=== PATIENT | male | born 1990 | race African-American/Black ===

== ENCOUNTER 2018-08-13 19:06 | Inpatient (IN) ==
[2018-08-13 19:45] LABS: Basophils # 0.1 10*3/uL (0.0-0.2); Basophils % 0.9 % (0.0-0.8); Eosinophils # 0.1 10*3/uL (0.0-0.87); Eosinophils % 0.4 % (0.00-10.9); Hemoglobin 16.6 GM/DL (14.0-18.0); Immature Granulocytes % 0.3 %; Immature Granulocytes Absolute 0.03 #; Lymphocytes # 3.6 10*3/uL (1.4-4.0); Lymphocytes % 31.5 % (21.2-54.2); Mean Corpuscular HGB Conc 32.5 GM/DL (32-36); Mean Corpuscular Hemoglobin 31 PG (27-34); Mean Corpuscular Volume 94.1 FL (87-102); Mean Platelet Volume 10.2 FL (9.6-12.0); Monocytes # 1.1 10*3/uL (0.11-0.8); Monocytes % 9.7 % (1.7-12.7); Neutrophils # 6.5 10*3/uL (1.4-7.4); Neutrophils % 57.2 % (38.7-73.9); Platelet Count 221 T/CUMM (130-400); Red Blood Count 5.42 MC/CUMM (3.8-5.5); Red Cell Distribution Width 13.7 % (9.3-17.3); White Blood Count 11.4 T/CUMM (4-12)
[2018-08-13 19:55] LABS: INR 1.3; PT Patient Result 14.1 SECS; Partial Thromboplastin Time 22.6 SECS (0-40)
[2018-08-13 20:10] LABS: Albumin 4.1 G/DL (3.4-5.0); Bilirubin,Total 4.6 MG/DL (0.2-1.0); Osmolality,Calculated 276.1 MOS/KG (273-304); Total Protein 7.4 G/DL (6.4-8.3)
[2018-08-13] MEDS ORDERED: ASPIRIN EC 325 MG TABLET PO STA (21:01)
[2018-08-13] MEDS ORDERED: SODIUM CHLORIDE 0.9% 1,000 ML IV STA (21:02)
[2018-08-13] MEDS ORDERED: NITROGLYCERIN SL 0.4 MG TABLET SL STA (21:02)
[2018-08-13] MEDS ORDERED: CLOPIDOGREL 300 MG TABLET PO STA (22:47)
[2018-08-13] MEDS ORDERED: ACETAMINOPHEN 325 MG TABLET PO PRN (22:47)
[2018-08-13] MEDS ORDERED: NICOTINE 21 MG/24 HR PATCH TRANSDERM PRN (22:47)
[2018-08-13] MEDS ORDERED: BISACODYL 5 MG TABLET PO PRN (22:47)
[2018-08-13] MEDS ORDERED: diphenhydrAMINE CAP 25 MG CAPSULE PO PRN (22:47)
[2018-08-13] MEDS ORDERED: traZODone 50 MG TABLET PO PRN (22:47)
[2018-08-13 23:09] LABS: Bilirubin,Direct 1.09 MG/DL (0.0-0.20); Bilirubin,Indirect 3.6 MG/DL (0.0-1.0); Bilirubin,Total 4.7 MG/DL (0.2-1.0); Total Protein 7.7 G/DL (6.4-8.3)
[2018-08-13 23:14] LABS: Apearance,Urine CLEAR (Clear); Bilirubin,Urine Negative (Negative); Blood, Urine Negative (Negative); Glucose,Urine (UA) Negative (Negative); Ketones,Urine Negative (Negative); Nitrite,Urine Negative (Negative); Protein,Urine Negative; RBC,Urine <1 /HPF (0-4); Urine Color Yellow (Yellow); Urine Specific Gravity 1.009 (1.001-1.035); WBC,Urine <1 /HPF (0-6)
[2018-08-13 23:16] LABS: Risk Ratio 2.82; Thyroid Stimulating Hormone 2.39 uIU/ml (0.358-3.74); VLDL CHOLESTEROL 16.8 MG/DL
[2018-08-13] MEDS: ONDANSETRON 4 MG/2 ML VIAL IV PRN (23:20)
[2018-08-13] MEDS: MORPHINE 4 MG/1 ML VIAL IV PRN (23:20)
[2018-08-13 23:25] LABS: Barbiturates Screen,Urine Negative (Negative); Benzodiazepines Screen,Urine Negative (Negative); Cannabinoid Screen,Urine Negative (Negative); Opiate Screen,Urine Negative (Negative); Phencyclidine Screen,Urine Negative (Negative)
[2018-08-14 00:07] LABS: Hepatitis A Ab IgM Quant 0.21 Index; Hepatitis A Ab IgM Result Negative (Negative); Hepatitis B Core IgM Quant 0.09 Index; Hepatitis B Core IgM Result Negative (Negative); Hepatitis B Surface Ag Quant < 0.10 Index; Hepatitis B Surface Ag Result Negative (Negative); Hepatitis C Virus Ab Quant 0.05 Index; Hepatitis C Virus Ab Result Negative (Negative)
[2018-08-14 05:14] LABS: Calcium 8.4 MG/DL (8.5-10.1); Osmolality,Calculated 279.7 MOS/KG (273-304); Potassium 3.5 MMOL/L (3.5-5.1)
[2018-08-14] MEDS: PANTOPRAZOLE 40 MG VIAL IV SCH (10:06)
[2018-08-14] MEDS: FUROSEMIDE 40 MG/4 ML VIAL IV SCH (10:07)
[2018-08-14] MEDS: CLOPIDOGREL 75 MG TABLET PO SCH (10:07)
[2018-08-14] MEDS: ASPIRIN 325 MG TABLET PO SCH (10:08)
[2018-08-14] MEDS: CARVEDILOL 3.125 MG TABLET PO SCH ×2 (10:08→21:33)
[2018-08-15 04:27] LABS: Basophils # 0.1 10*3/uL (0.0-0.2); Basophils % 0.8 % (0.0-0.8); Eosinophils # 0.1 10*3/uL (0.0-0.87); Eosinophils % 1.2 % (0.00-10.9); Hematocrit 42.9 VOL% (42.0-52.0); Hemoglobin 13.9 GM/DL (14.0-18.0); Immature Granulocytes % 0.3 %; Immature Granulocytes Absolute 0.03 #; Lymphocytes # 3.8 10*3/uL (1.4-4.0); Lymphocytes % 38.8 % (21.2-54.2); Mean Corpuscular HGB Conc 32.4 GM/DL (32-36); Mean Corpuscular Hemoglobin 31 PG (27-34); Mean Corpuscular Volume 94.7 FL (87-102); Mean Platelet Volume 10.7 FL (9.6-12.0); Monocytes # 0.9 10*3/uL (0.11-0.8); Monocytes % 9.4 % (1.7-12.7); Neutrophils # 4.8 10*3/uL (1.4-7.4); Neutrophils % 49.5 % (38.7-73.9); Platelet Count 190 T/CUMM (130-400); Red Blood Count 4.53 MC/CUMM (3.8-5.5); Red Cell Distribution Width 13.5 % (9.3-17.3); White Blood Count 9.7 T/CUMM (4-12)
[2018-08-15 05:07] LABS: Calcium 8.2 MG/DL (8.5-10.1); Osmolality,Calculated 285.4 MOS/KG (273-304); Potassium 3.2 MMOL/L (3.5-5.1)
[2018-08-15] MEDS: CARVEDILOL 3.125 MG TABLET PO SCH ×2 (09:07→21:13)
[2018-08-15] MEDS: FUROSEMIDE 40 MG/4 ML VIAL IV SCH (09:07)
[2018-08-15] MEDS: PANTOPRAZOLE 40 MG VIAL IV SCH (09:57)
[2018-08-15] MEDS: CLOPIDOGREL 75 MG TABLET PO SCH (09:58)
[2018-08-15] MEDS: ASPIRIN 325 MG TABLET PO SCH (09:58)
[2018-08-15] MEDS: POTASSIUM CHLORIDE 20 MEQ TABLET PO SCH (12:26)
[2018-08-15] MEDS: SPIRONOLACTONE 25 MG TABLET PO SCH (12:26)
[2018-08-15] MEDS: MORPHINE 4 MG/1 ML VIAL IV PRN ×2 (16:10→21:12)
[2018-08-16 04:49] LABS: Calcium 8.2 MG/DL (8.5-10.1); Potassium 3.7 MMOL/L (3.5-5.1)
[2018-08-16] MEDS ORDERED: NITROGLYCERIN SL 0.4 MG TABLET SL ONE (08:50)
[2018-08-16] MEDS: ONDANSETRON 4 MG/2 ML VIAL IV PRN (09:00)
[2018-08-16] MEDS: ASPIRIN 325 MG TABLET PO SCH (09:56)
[2018-08-16] MEDS: CARVEDILOL 3.125 MG TABLET PO SCH ×2 (09:56→20:50)
[2018-08-16] MEDS: SPIRONOLACTONE 25 MG TABLET PO SCH (09:56)
[2018-08-16] MEDS: POTASSIUM CHLORIDE 20 MEQ TABLET PO SCH (09:57)
[2018-08-16] MEDS: FUROSEMIDE 40 MG/4 ML VIAL IV SCH (09:59)
[2018-08-16] MEDS: PANTOPRAZOLE 40 MG VIAL IV SCH (09:59)
[2018-08-16] MEDS ORDERED: ALBUTEROL/IPRATROPIUM 3 ML NEB RESP TX PRN (14:10)
[2018-08-16] MEDS: FUROSEMIDE 40 MG TABLET PO SCH (16:42)
[2018-08-16] MEDS: MORPHINE 4 MG/1 ML VIAL IV PRN (20:50)
[2018-08-17] MEDS: MORPHINE 4 MG/1 ML VIAL IV PRN ×2 (01:55→15:54)
[2018-08-17 03:41] LABS: Basophils # 0.1 10*3/uL (0.0-0.2); Basophils % 0.9 % (0.0-0.8); Eosinophils # 0.1 10*3/uL (0.0-0.87); Eosinophils % 0.8 % (0.00-10.9); Hematocrit 45.3 VOL% (42.0-52.0); Hemoglobin 14.6 GM/DL (14.0-18.0); Immature Granulocytes % 0.4 %; Immature Granulocytes Absolute 0.05 #; Lymphocytes # 3.7 10*3/uL (1.4-4.0); Lymphocytes % 32.6 % (21.2-54.2); Mean Corpuscular HGB Conc 32.2 GM/DL (32-36); Mean Corpuscular Hemoglobin 30 PG (27-34); Mean Corpuscular Volume 94.4 FL (87-102); Mean Platelet Volume 10.3 FL (9.6-12.0); Monocytes # 1.2 10*3/uL (0.11-0.8); Monocytes % 10.5 % (1.7-12.7); Neutrophils # 6.1 10*3/uL (1.4-7.4); Neutrophils % 54.8 % (38.7-73.9); Platelet Count 212 T/CUMM (130-400); Red Cell Distribution Width 13.7 % (9.3-17.3); White Blood Count 11.2 T/CUMM (4-12)
[2018-08-17 04:11] LABS: Calcium 8.7 MG/DL (8.5-10.1); Potassium 4.1 MMOL/L (3.5-5.1)
[2018-08-17] MEDS ORDERED: FUROSEMIDE 40 MG/4 ML VIAL IV ONE (06:30)
[2018-08-17] MEDS ORDERED: FUROSEMIDE 40 MG/4 ML VIAL ONE (06:33)
[2018-08-17] MEDS: POTASSIUM CHLORIDE 20 MEQ TABLET PO SCH (09:51)
[2018-08-17] MEDS: SPIRONOLACTONE 25 MG TABLET PO SCH (09:51)
[2018-08-17] MEDS: ASPIRIN 325 MG TABLET PO SCH (09:51)
[2018-08-17] MEDS: CARVEDILOL 3.125 MG TABLET PO SCH ×2 (09:51→21:32)
[2018-08-17] MEDS: FUROSEMIDE 40 MG TABLET PO SCH (09:51)
[2018-08-17] MEDS: PANTOPRAZOLE 40 MG VIAL IV SCH (09:55)
[2018-08-17] MEDS: FUROSEMIDE 40 MG/4 ML VIAL IV SCH (17:14)
[2018-08-18 04:53] LABS: Basophils # 0.1 10*3/uL (0.0-0.2); Eosinophils # 0.1 10*3/uL (0.0-0.87); Eosinophils % 1.1 % (0.00-10.9); Hematocrit 51.4 VOL% (42.0-52.0); Hemoglobin 16.2 GM/DL (14.0-18.0); Immature Granulocytes % 0.3 %; Immature Granulocytes Absolute 0.04 #; Lymphocytes % 32.1 % (21.2-54.2); Mean Corpuscular HGB Conc 31.5 GM/DL (32-36); Mean Corpuscular Hemoglobin 30 PG (27-34); Mean Corpuscular Volume 96.4 FL (87-102); Mean Platelet Volume 10.6 FL (9.6-12.0); Monocytes # 1.5 10*3/uL (0.11-0.8); Neutrophils # 6.6 10*3/uL (1.4-7.4); Neutrophils % 53.5 % (38.7-73.9); Platelet Count 233 T/CUMM (130-400); Red Blood Count 5.33 MC/CUMM (3.8-5.5); Red Cell Distribution Width 13.9 % (9.3-17.3); White Blood Count 12.3 T/CUMM (4-12)
[2018-08-18 05:21] LABS: Calcium 8.8 MG/DL (8.5-10.1); Osmolality,Calculated 273.2 MOS/KG (273-304); Potassium 4.2 MMOL/L (3.5-5.1)
[2018-08-18] MEDS: SPIRONOLACTONE 25 MG TABLET PO SCH (09:00)
[2018-08-18] MEDS: POTASSIUM CHLORIDE 20 MEQ TABLET PO SCH (09:00)
[2018-08-18] MEDS: ASPIRIN 325 MG TABLET PO SCH (09:00)
[2018-08-18] MEDS: CARVEDILOL 3.125 MG TABLET PO SCH ×2 (09:00→21:55)
[2018-08-18] MEDS: PANTOPRAZOLE 40 MG VIAL IV SCH (09:02)
[2018-08-18] MEDS: FUROSEMIDE 40 MG/4 ML VIAL IV SCH ×2 (09:06→16:36)
[2018-08-18] MEDS ORDERED: MAGNESIUM CITRATE 300 ML BOTTLE PO PRN (11:55)
[2018-08-18] MEDS: POLYETHYLENE GLYCOL POWDER 17 GM PACK PO SCH (14:17)
[2018-08-18] MEDS: LISINOPRIL 2.5 MG TABLET PO SCH (21:55)
[2018-08-19 03:57] LABS: Basophils # 0.1 10*3/uL (0.0-0.2); Basophils % 0.9 % (0.0-0.8); Eosinophils # 0.1 10*3/uL (0.0-0.87); Hematocrit 46.3 VOL% (42.0-52.0); Hemoglobin 14.9 GM/DL (14.0-18.0); Immature Granulocytes % 0.4 %; Immature Granulocytes Absolute 0.05 #; Lymphocytes # 4.1 10*3/uL (1.4-4.0); Lymphocytes % 35.5 % (21.2-54.2); Mean Corpuscular HGB Conc 32.2 GM/DL (32-36); Mean Corpuscular Hemoglobin 30 PG (27-34); Mean Corpuscular Volume 94.1 FL (87-102); Mean Platelet Volume 10.7 FL (9.6-12.0); Monocytes # 1.4 10*3/uL (0.11-0.8); Monocytes % 11.7 % (1.7-12.7); Neutrophils # 5.8 10*3/uL (1.4-7.4); Neutrophils % 50.5 % (38.7-73.9); Platelet Count 213 T/CUMM (130-400); Red Blood Count 4.92 MC/CUMM (3.8-5.5); Red Cell Distribution Width 13.8 % (9.3-17.3); White Blood Count 11.6 T/CUMM (4-12)
[2018-08-19 04:32] LABS: Calcium 8.2 MG/DL (8.5-10.1); Osmolality,Calculated 275.1 MOS/KG (273-304); Potassium 3.8 MMOL/L (3.5-5.1)
[2018-08-19] MEDS: SPIRONOLACTONE 25 MG TABLET PO SCH (08:49)
[2018-08-19] MEDS: ASPIRIN 325 MG TABLET PO SCH (08:49)
[2018-08-19] MEDS: CARVEDILOL 3.125 MG TABLET PO SCH ×2 (08:49→21:46)
[2018-08-19] MEDS: POLYETHYLENE GLYCOL POWDER 17 GM PACK PO SCH (08:49)
[2018-08-19] MEDS: POTASSIUM CHLORIDE 20 MEQ TABLET PO SCH (08:49)
[2018-08-19] MEDS: FUROSEMIDE 40 MG/4 ML VIAL IV SCH ×2 (08:54→17:16)
[2018-08-19] MEDS: PANTOPRAZOLE 40 MG VIAL IV SCH (09:06)
[2018-08-19] MEDS: LISINOPRIL 2.5 MG TABLET PO SCH (21:46)
[2018-08-20 05:09] LABS: Basophils # 0.1 10*3/uL (0.0-0.2); Basophils % 0.8 % (0.0-0.8); Eosinophils # 0.1 10*3/uL (0.0-0.87); Eosinophils % 1.2 % (0.00-10.9); Hematocrit 44.2 VOL% (42.0-52.0); Hemoglobin 14.2 GM/DL (14.0-18.0); Immature Granulocytes % 0.4 %; Immature Granulocytes Absolute 0.04 #; Lymphocytes # 3.3 10*3/uL (1.4-4.0); Mean Corpuscular HGB Conc 32.1 GM/DL (32-36); Mean Corpuscular Hemoglobin 30 PG (27-34); Mean Corpuscular Volume 93.4 FL (87-102); Mean Platelet Volume 10.9 FL (9.6-12.0); Monocytes # 1.3 10*3/uL (0.11-0.8); Monocytes % 11.8 % (1.7-12.7); Neutrophils # 5.9 10*3/uL (1.4-7.4); Neutrophils % 54.8 % (38.7-73.9); Platelet Count 217 T/CUMM (130-400); Red Blood Count 4.73 MC/CUMM (3.8-5.5); Red Cell Distribution Width 13.7 % (9.3-17.3); White Blood Count 10.7 T/CUMM (4-12)
[2018-08-20 05:34] LABS: Calcium 8.1 MG/DL (8.5-10.1); Osmolality,Calculated 280.8 MOS/KG (273-304); Potassium 3.5 MMOL/L (3.5-5.1)
[2018-08-20] MEDS ORDERED: POTASSIUM CHLORIDE 20 MEQ TABLET PO SCH (07:39)
[2018-08-20] MEDS ORDERED: FUROSEMIDE 80 MG TABLET PO SCH (08:00)
[2018-08-20] MEDS: SPIRONOLACTONE 25 MG TABLET PO SCH (08:44)
[2018-08-20] MEDS: ASPIRIN 325 MG TABLET PO SCH (08:44)
[2018-08-20] MEDS: CARVEDILOL 3.125 MG TABLET PO SCH (08:45)
[2018-08-20] MEDS: POLYETHYLENE GLYCOL POWDER 17 GM PACK PO SCH (08:45)
[2018-08-20] MEDS: PANTOPRAZOLE 40 MG VIAL IV SCH (08:45)
[2018-08-20 11:39] VITALS: BP 110/54
== END 2018-08-20 11:30 | disposition home or self-care (01) | DRG 293 ==
LOC: N.EDINP 19:06 → N.ED 19:06 → SUATTDRO 22:47 → N.TELES 08-14 03:38
PROVIDERS: ADMIT Internal Medicine; ATTEND Internal Medicine

== ENCOUNTER 2018-10-05 22:48 | Observation (INO) ==
[2018-10-05] MEDS ORDERED: NITROGLYCERIN 2% OINT 1 INCH/GM PACK TOP STA (22:58)
[2018-10-05] MEDS ORDERED: ALBUTEROL/IPRATROPIUM 3 ML NEB RESP TX STA (22:58)
[2018-10-05] MEDS ORDERED: FUROSEMIDE 40 MG/4 ML VIAL IV STA (22:58)
[2018-10-05] MEDS ORDERED: ONDANSETRON 4 MG/2 ML VIAL IV STA (22:58)
[2018-10-05] MEDS ORDERED: ASPIRIN 325 MG TABLET PO STA (22:58)
[2018-10-05 23:10] LABS: Basophils # 0.1 10*3/uL (0.0-0.2); Basophils % 0.6 % (0.0-0.8); Eosinophils # 0.1 10*3/uL (0.0-0.87); Eosinophils % 0.4 % (0.00-10.9); Hematocrit 48.7 VOL% (42.0-52.0); Hemoglobin 15.7 GM/DL (14.0-18.0); Immature Granulocytes % 0.7 %; Lymphocytes # 3.9 10*3/uL (1.4-4.0); Lymphocytes % 25.5 % (21.2-54.2); Mean Corpuscular HGB Conc 32.2 GM/DL (32-36); Mean Corpuscular Hemoglobin 30 PG (27-34); Mean Corpuscular Volume 93.3 FL (87-102); Mean Platelet Volume 9.8 FL (9.6-12.0); Monocytes # 1.3 10*3/uL (0.11-0.8); Monocytes % 8.7 % (1.7-12.7); Neutrophils # 9.7 10*3/uL (1.4-7.4); Neutrophils % 64.1 % (38.7-73.9); Platelet Count 227 T/CUMM (130-400); Red Blood Count 5.22 MC/CUMM (3.8-5.5); Red Cell Distribution Width 14.6 % (9.3-17.3); White Blood Count 15.1 T/CUMM (4-12)
[2018-10-05 23:22] LABS: INR 1.5; PT Patient Result 16.1 SECS; Partial Thromboplastin Time 23.1 SECS (0-40)
[2018-10-05 23:34] LABS: Alanine Aminotransferase 38 U/L (16-61); Albumin 3.4 G/DL (3.4-5.0); Alkaline Phosphatase 95 U/L (45-117); Aspartate Amino Transferase 46 U/L (0-37); Blood Urea Nitrogen 30 MG/DL (7-18); Calcium 8.3 MG/DL (8.5-10.1); Glucose 96 MG/DL (74-106); Osmolality,Calculated 273.2 MOS/KG (273-304); Potassium 3.6 MMOL/L (3.5-5.1); Sodium 134 MMOL/L (136-145); Total Protein 6.5 G/DL (6.4-8.3)
[2018-10-06 00:15] LABS: Apearance,Urine CLEAR (Clear); Bacteria,Urine Occasional /HPF (Few); Bilirubin,Urine Negative (Negative); Blood, Urine Negative (Negative); Glucose,Urine (UA) Negative (Negative); Ketones,Urine Negative (Negative); Mucus,Urine Occasional /LPF (Occasional); Nitrite,Urine Negative (Negative); Protein,Urine Negative; Urine Color Yellow (Yellow); Urine Specific Gravity 1.006 (1.001-1.035); WBC,Urine 1 /HPF (0-6)
[2018-10-06 00:28] LABS: Barbiturates Screen,Urine Negative (Negative); Benzodiazepines Screen,Urine Negative (Negative); Cannabinoid Screen,Urine Negative (Negative); Opiate Screen,Urine Negative (Negative); Phencyclidine Screen,Urine Negative (Negative)
[2018-10-06] MEDS ORDERED: ONDANSETRON 4 MG/2 ML VIAL IV PRN (00:46)
[2018-10-06] MEDS ORDERED: ACETAMINOPHEN 325 MG TABLET PO PRN (00:46)
[2018-10-06] MEDS ORDERED: NITROGLYCERIN SL 0.4 MG TABLET SL PRN (00:55)
[2018-10-06] MEDS ORDERED: METOPROLOL TARTRATE 5 MG/5 ML VIAL IV STA (01:46)
[2018-10-06 02:00] LABS: Risk Ratio 5.04; VLDL CHOLESTEROL 14.6 MG/DL
[2018-10-06] MEDS ORDERED: MORPHINE 4 MG/1 ML VIAL IV PRN (03:10)
[2018-10-06] MEDS: ALBUTEROL/IPRATROPIUM 3 ML NEB RESP TX SCH ×6 (03:12→23:50)
[2018-10-06 07:24] LABS: Calcium 8.4 MG/DL (8.5-10.1); Osmolality,Calculated 271.4 MOS/KG (273-304); Potassium 3.3 MMOL/L (3.5-5.1)
[2018-10-06] MEDS: FUROSEMIDE 40 MG/4 ML VIAL IV SCH ×2 (08:10→16:50)
[2018-10-06] MEDS: PANTOPRAZOLE 40 MG TABLET PO SCH (09:42)
[2018-10-06] MEDS: ASPIRIN 325 MG TABLET PO SCH (09:42)
[2018-10-06] MEDS: ENOXAPARIN 30 MG/0.3 ML SYRINGE SUBCUT SCH (09:42)
[2018-10-06] MEDS: METOPROLOL TARTRATE 50 MG TABLET PO SCH (09:42)
[2018-10-06] MEDS: SPIRONOLACTONE 25 MG TABLET PO SCH (09:42)
[2018-10-06] MEDS ORDERED: ATORVASTATIN 20 MG TABLET PO SCH (21:00)
[2018-10-07] MEDS: ALBUTEROL/IPRATROPIUM 3 ML NEB RESP TX SCH ×3 (03:13→11:28)
[2018-10-07 05:29] LABS: Basophils # 0.1 10*3/uL (0.0-0.2); Basophils % 0.7 % (0.0-0.8); Eosinophils # 0.1 10*3/uL (0.0-0.87); Eosinophils % 0.9 % (0.00-10.9); Hematocrit 45.5 VOL% (42.0-52.0); Hemoglobin 14.5 GM/DL (14.0-18.0); Immature Granulocytes % 0.6 %; Immature Granulocytes Absolute 0.07 #; Lymphocytes # 3.5 10*3/uL (1.4-4.0); Lymphocytes % 28.3 % (21.2-54.2); Mean Corpuscular HGB Conc 31.9 GM/DL (32-36); Mean Corpuscular Hemoglobin 31 PG (27-34); Mean Corpuscular Volume 95.6 FL (87-102); Mean Platelet Volume 9.9 FL (9.6-12.0); Monocytes # 1.2 10*3/uL (0.11-0.8); Monocytes % 9.2 % (1.7-12.7); Neutrophils # 7.6 10*3/uL (1.4-7.4); Neutrophils % 60.3 % (38.7-73.9); Platelet Count 198 T/CUMM (130-400); Red Blood Count 4.76 MC/CUMM (3.8-5.5); Red Cell Distribution Width 14.7 % (9.3-17.3); White Blood Count 12.5 T/CUMM (4-12)
[2018-10-07 05:54] LABS: Calcium 8.2 MG/DL (8.5-10.1); Osmolality,Calculated 279.1 MOS/KG (273-304); Potassium 3.3 MMOL/L (3.5-5.1)
[2018-10-07] MEDS ORDERED: POTASSIUM CHLORIDE 20 MEQ TABLET PO ONE (07:18)
[2018-10-07] MEDS ORDERED: POLYETHYLENE GLYCOL POWDER 17 GM PACK PO PRN (08:41)
[2018-10-07] MEDS ORDERED: LOSARTAN 25 MG TABLET PO SCH (09:00)
[2018-10-07] MEDS: ASPIRIN 325 MG TABLET PO SCH (09:38)
[2018-10-07] MEDS: PANTOPRAZOLE 40 MG TABLET PO SCH (09:39)
[2018-10-07] MEDS: METOPROLOL TARTRATE 50 MG TABLET PO SCH (09:39)
[2018-10-07] MEDS: ENOXAPARIN 30 MG/0.3 ML SYRINGE SUBCUT SCH (09:39)
[2018-10-07] MEDS: FUROSEMIDE 40 MG/4 ML VIAL IV SCH (09:39)
[2018-10-07] MEDS: SPIRONOLACTONE 25 MG TABLET PO SCH (09:39)
[2018-10-07 11:48] VITALS: BP 111/68
== END 2018-10-07 14:40 | disposition home or self-care (01) ==
LOC: EDBD → EDUNIT# → N.ED 22:48 → N.EDINP 22:48 → N.TELEN 10-06 08:05
PROVIDERS: ADMIT Emergency Medicine; ATTEND Emergency Medicine